=== PATIENT | female | born 1990 | race Two or more races ===

== ENCOUNTER 2017-06-30 06:46 | Emergency (ER) | payer MEDICAID ==
[~2017-06-30] VITALS: Ht 149.9 cm; Wt 49.0 kg
[2017-06-30 07:41] LABS: Basophils # (auto) 0 uL; Basophils % (auto) 0.4 % (0.0-2.0); CONDITION Y; Eosinophils # (auto) 0.2 uL; Eosinophils % (auto) 3.7 % (0.0-7.0); Hematocrit 40.4 % (36.0-46.0); Hemoglobin 13.5 g/dL (12.2-16.2); Lymphocytes # (auto) 2.6 uL; Lymphocytes % (auto) 49.7 % (10.0-50.0); Mean Corpuscular Hgb Conc. 33.5 g/dL (32.0-36.0); Mean Corpuscular Volume 89.3 fL (80.0-100.0); Mean Platelet Volume 9.7 fL (7.4-10.4); Monocytes # (auto) 0.3 uL; Monocytes % (auto) 6.3 % (0.0-12.0); Neutrophils # (auto) 2.1 uL; Neutrophils % (auto) 39.9 % (37.0-80.0); Platelet Count (auto) 217 10^3/uL (140-450); Red Cell Distribution Width 14.2 % (11.6-16.0); White Blood Cell 5.2 10^3/uL (4.4-10.8)
[2017-06-30] MEDS ORDERED: SODIUM CHLORIDE 0.9% 1,000 ML IV ONE (08:03)
[2017-06-30 08:04] LABS: Albumin 4.3 g/dL (3.4-5.0); Alkaline Phosphatase 52 U/L (45-117); Anion Gap 9 (5-15); Aspartate Aminotransferase 13 U/L (15-37); BUN/Creatinine Ratio 23.6; Bilirubin, Total 0.5 mg/dL (0.2-1.0); Blood Urea Nitrogen 13 mg/dL (7-18); Calcium 9.1 mg/dL (8.5-10.1); Carbon Dioxide 24 mmol/L (21-32); Chloride 107 mmol/L (98-107); GFR African American 169 mL/min; GFR Non-African American 140 mL/min; Glucose 112 mg/dL (74-106); Potassium 3.5 mmol/L (3.5-5.1); Sodium 140 mmol/L (136-145); Total Protein 7.8 g/dL (6.4-8.2)
[2017-06-30] MEDS ORDERED: LORazepam 2MG/ML-1ML VIAL IV ONE (08:15)
[2017-06-30 09:34] LABS: Urine Bilirubin Negative (Negative); Urine Blood Negative /uL (Negative); Urine Color Colorless (Yellow); Urine Glucose Normal (Normal); Urine Ketone Negative (Negative); Urine Nitrite Negative (Negative); Urine RBC <1 /hpf (0 - 4); Urine Urobilinogen Normal (Negative)
[2017-06-30 09:41] VITALS: BP 102/56
== END 2017-06-30 09:59 | disposition home or self-care (01) ==
LOC: ER 06:46
DX: R11.2 Nausea with vomiting, unspecified (principal); R42 Dizziness and giddiness; F12.10 Cannabis abuse, uncomplicated
CPT/HCPCS: 36415; 80053; 80307; 80320; 81001; 85025; 93005; 94761; 96360